=== PATIENT | female | born 1960 | race Caucasian/White ===

== ENCOUNTER 2018-11-10 12:34 | Emergency (ER) | payer BC, SELFPAY ==
[2018-11-10 12:25] VITALS: BP 123/53; PULSE 59; RESP 18; TEMP 37.1; O2SAT 98
--- NOTE | 2018-11-10 12:41 | DI.RAD.S_ITS ---
PROCEDURE: XR CHEST 1V INDICATIONS: syncopal episodes TECHNIQUE: One view of the chest was acquired. COMPARISON: [facility], , CHEST 2 VIEW, 10/14/2011, 9:21. FINDINGS: Surgical changes and devices: None. Lungs and pleura: Lungs are clear. No pleural effusions or pneumothorax. Mediastinum: Mediastinal contours appear normal. Heart size is normal. Bones and chest wall: No suspicious bony lesions. Overlying soft tissues appear unremarkable. IMPRESSION: No evidence acute pulmonary process. Dictated by: Gen Rao M.D. on 11/10/2018 at 13:27 Approved by: Gen Rao M.D. on 11/10/2018 at 13:27
--- NOTE | 2018-11-10 12:45 | ED.HA ---
HPI - Headache <MALDONADO Kim - Last Filed: 11/11/18 02:13> General Chief Complaint: Syncope Stated Complaint: Fall 8 days ago Source: patient and other (AA sponsor) Mode of arrival: EMS Limitations: no limitations History of Present Illness HPI Narrative: This is a 58-year-old female, nonsmoker, who had syncopal episode 8 days ago when she walking to the kitchen to drink above water since she fell mildly dehydrated. She says she was not feeling well and had dizziness and felt dehydrated at this time but denies chest pain, breathing difficulty. She also had a couple of vomitings which has resolved at this time. She was unsure how long she was on the floor after the syncopal episode. Then again she had two more episodes of syncopes over the last couple of days. She complains of headache, neck pain, feeling fatigued. She was abstinent from alcohol last 2 years but had relapsed 2 days ago and has been drinking a bottle of wine each day. She reports has increased stress at this time. She denies taking other drugs or substances with alcohol and is not suicidal. She reports left arm and leg numbness. She denies weakness to her extremities, difficulty speech, difficulty swallowing. She reports mild photosensitivity with her headache. She reports is known to have bradycardia in 60s. She currently lives with a roommate and works with her AA sponsor for her alcohol addiction. According to the medics, her blood pressure was in 90s at one point en route. Related Data Home Medications Medication Instructions Recorded Confirmed CHOLECALCIFEROL (VITAMIN D3) 2,000 iu PO Q DAY #0 10/02/11 (Vitamin D) Fish Oil (#FISH OIL) 1 iu PO Q DAY #0 10/02/11 GINKGO BILOBA (GINKO BILOBA) 60 mg PO Q DAY #0 10/02/11 MULTIVITAMIN (#ATOXIMETIN-B) 1 cap PO Q DAY #0 10/02/11 VITAMIN B COMPLEX (Vitamin B 1 tab PO Q DAY #0 10/02/11 Complex) divalproex [Depakote] 1,500 mg PO BID #0 10/02/11 duloxetine [Cymbalta] 60 mg PO Q DAY #0 10/02/11 bupropion HCl 150 mg PO BID 11/10/18 11/10/18 levothyroxine 200 mcg PO DAILY 11/10/18 11/10/18 Allergies Allergy/AdvReac Type Severity Reaction Status Date / Time No Known Drug Allergies Allergy Verified 11/10/18 12:36 Review of Systems <MALDONADO Kim - Last Filed: 11/11/18 02:13> Review of Systems General: See HPI HEENT: Reports headache and mild light sensitivity. Denies sinus pain, ear pain, sore throat, difficulty swallowing, dizziness. Respiratory: Denies dyspnea, cough, wheezing, hemoptysis, sputum. Cardiovascular: Denies chest pain, palpitations, orthopnea, edema. Gastrointestinal: Resolved vomiting x2 8 days ago. Denies nausea, abdominal pain, diarrhea, constipation, melena. : Denies dysuria, frequency, incontinence, hematuria, urinary retention. Musculoskeletal: Denies weakness, joint pain or bony pain. Skin: Denies rash, skin lesions. Reports bruises. Neurologic: Denies weakness, change in speech, confusion, seizures, incoordination. Psychiatric: Reports being under significant stressed and relapsed drinking alcohol 2 days ago after 2 years absenteesim. Denies suicidal ideation, homicidal ideation. Reports support from a sponsor and lives with a roommate and a landlord. 12-point review of systems is negative except for those stated above. PFSH <MALDONADO Kim - Last Filed: 11/11/18 02:13> Medical History Alcohol abuse (Acute) Depression (Acute) Cerebral hemorrhage following injury (Chronic) Surgical History (Updated 11/11/18 @ 02:09 by MALDONADO Kim) History of gastric bypass (Chronic) Social History Smoking Status: Never smoker Social History Smoking Status: Never smoker Exam <MALDONADO Kim - Last Filed: 11/11/18 02:13> Narrative Exam Narrative: GEN: Alert, oriented x 3, well appearing and nourished, and in no acute distress. Head: Normal cephalic, atraumatic. No scalp or temporal tenderness, palpable mass or rash. EYES: Pupils are equal, round, and reactive to light and accommodation. Extraocular muscles are intact bilaterally. There is no subconjunctival hemorrhage, exudate and sclera non-icteric. ENT: Bilateral auditory canals and tympanic membranes. Hearing grossly intact. Nose without bleeding, purulent discharge, septal hematoma or deviation. Turbinate without erythema or swelling. Facial sinuses nontender to palpate. Mucous membrane moist, no mucosal lesion. Throat without erythema, tonsillar hypertrophy or exudate. Uvula in midline, airway patent. Neck: Trachea in midline. No JVD, non-tender without lymphadenopathy. No masses or thyroid megaly. Supple, non-tender and meningeal signs. CARDIAC: Normal regular rate and rhythm without murmurs, gallops, or rubs. No chest wall tenderness. No peripheral edema, cyanosis or pallor. Capillary refill is less than 2 seconds. RESPIRATORY: Lungs are cleat to auscultate bilaterally. No cough, wheezes, rales, or rhonchi. No stridor, respiratory distress, increase work of breathing, or accessary muscle used. ABD: Abdomen soft, nontender and non-distended. No guarding or rebound tenderness to palpate. Bowel sounds are normal in all 4 quadrants. There is no palpable masses or organomegaly. EXT: Full painless ROM of all extremities with no loss of sensation, strength, effusion or edema. SKIN: Superficial abrasion to left shoulder, ecchymosis to right knee. Warm, dry, normal color for patient. No erythema, lesions or rash on other areas. BACK: Nontender without deformity or crepitance. No flank tenderness. NEUROLOGICAL: Alert and oriented to place, time and person. No facial droops, dysphasia. CN II-XII intact. Strength and sensation symmetric and intact throughout. Cerebellar testing normal. PSYCHIATRIC: Good judgement and reason, without hallucinations, no abnormal affect or abnormal behaviors during the examination. Patient is not suicidal. Initial Vital Signs Initial Vital Signs: Vital Signs Temperature 98.7 F 11/10/18 12:25 Pulse Rate 59 L 11/10/18 12:25 Respiratory Rate 18 11/10/18 12:25 Blood Pressure 123/53 L 11/10/18 12:25 Pulse Oximetry 98 11/10/18 12:25 <Chapo Jaramillo, DO - Last Filed: 11/12/18 06:33> Initial Vital Signs Initial Vital Signs: Vital Signs Temperature 98.7 F 11/10/18 12:25 Pulse Rate 59 L 11/10/18 12:25 Respiratory Rate 18 11/10/18 12:25 Blood Pressure 123/53 L 11/10/18 12:25 Pulse Oximetry 98 11/10/18 12:25 Course <MALDONADO Kim - Last Filed: 11/11/18 02:13> Orders Ordered: Discontinued Medications Sodium Chloride (Normal Saline 0.9%) 1,000 mls @ 1,000 mls/hr IV BOLUS ONE Stop: 11/10/18 13:39 Last Infusion: 11/10/18 14:56 Dose: 0 mls/hr Admin: 11/10/18 13:27 Dose: 1,000 mls/hr Ketorolac Tromethamine (Toradol) 30 mg IV NOW ONE Stop: 11/10/18 14:29 Last Admin: 11/10/18 14:53 Dose: 30 mg Vital Signs - 8 hr 11/10/18 12:25 11/10/18 13:00 Temperature 98.7 F Pulse Rate 59 L 62 Respiratory Rate 18 17 Blood Pressure 123/53 L Blood Pressure [Left Arm] 116/57 L Pulse Oximetry 98 96 <DO Vero Galdamez Last Filed: 11/12/18 06:33> Orders Ordered: Discontinued Medications Sodium Chloride (Normal Saline 0.9%) 1,000 mls @ 1,000 mls/hr IV BOLUS ONE Stop: 11/10/18 13:39 Last Infusion: 11/10/18 14:56 Dose: 0 mls/hr Admin: 11/10/18 13:27 Dose: 1,000 mls/hr Ketorolac Tromethamine (Toradol) 30 mg IV NOW ONE Stop: 11/10/18 14:29 Last Admin: 11/10/18 14:53 Dose: 30 mg Vital Signs - 8 hr 11/10/18 12:25 11/10/18 13:00 Temperature 98.7 F Pulse Rate 59 L 62 Respiratory Rate 18 17 Blood Pressure 123/53 L Blood Pressure [Left Arm] 116/57 L Pulse Oximetry 98 96 MDM - Headache <MALDONADO Kim - Last Filed: 11/11/18 02:13> Differential Diagnosis Differential diagnosis: Likely subarachnoid hemorrhage, headache, postconcussion syndrome and other (arrthymia, fall, dehydration, alcohol intoxication, c spine fracture) Medical Records Attestation: I reviewed the patient's medical records. Lab Data Attestation: I reviewed the patient's lab results. Result diagrams: 11/10/18 12:45 11/10/18 12:45 Lab Results 11/10/18 11/10/18 11/10/18 Range/Units 12:45 12:45 12:45 WBC 7.1 (4.5-11.0) X10^3/uL RBC 4.59 (4.0-5.2) X10^6/uL Hgb 14.0 (12.0-16.0) g/dL Hct 41.0 (36-46) % MCV 89.2 (80-100) fL MCH 30.5 (26-34) PG MCHC 34.2 (30-36) % RDW 14.2 (11.6-14.8) % Plt Count 242 (150-400) X10^3/uL Neut % (Auto) 55.0 (50-75) % Lymph % (Auto) 35.3 (25-40) % Branch % (Auto) 7.4 (3-14) % Eos % (Auto) 1.4 L (2-4) % Baso % (Auto) 0.9 (0-2) % Neut # (Auto) 3900 (6418-7183) /uL Lymph # (Auto) 2500 (3868-4000) /uL Branch # (Auto) 500 (0-900) /uL Eos # (Auto) 100 (0-450) /uL Baso # (Auto) 100 (0-100) /uL PT 11.3 (10.1-12.7) SECONDS INR 1.0 (0.9-1.3) Sodium 146 H (137-145) mmol/L Potassium 4.6 (3.4-5.1) mmol/L Chloride 108 H (98-107) mmol/L Carbon Dioxide 25 (22-32) mmol/L BUN 7 (7-17) mg/dL Creatinine 0.50 L (0.52-1.04) mg/dL Estimated GFR > 60.0 (>60) mL/min BUN/Creatinine Ratio 14.0 (6-22) Glucose 86 (80-110) mg/dL Calcium 9.5 (8.4-10.2) mg/dL Total Bilirubin 0.5 (0.2-1.3) mg/dL AST 40 H (14-36) IU/L ALT 27 (9-52) IU/L Alkaline Phosphatase 58 (38-126) U/L Total Creatine Kinase 38 (30-135) U/L CK-MB (CK-2) TNP CK-MB (CK-2) Rel Index TNP Troponin I 0.013 (0.01-0.034) ng/mL Total Protein 7.7 (6.3-8.2) g/dL Albumin 4.6 (3.5-5.0) g/dL Globulin 3.1 (1.7-4.1) g/dL Albumin/Globulin Ratio 1.5 (1.0-2.8) Urine RBC (0-5/HPF) Urine WBC (0-5/HPF) Ur Squamous Epith Cells (0-5/HPF) Urine Bacteria (None) Ur Culture Indicated? Micro UA Comment Urine Opiates Screen (Negative) Ur Oxycodone Screen (Negative) Urine Methadone Screen (Negative) Ur Barbiturates Screen (Negative) U Tricyclic Antidepress (Negative) Ur Phencyclidine Scrn (Negative) Ur Amphetamines Screen (Negative) U Methamphetamines Scrn (Negative) Ur MDMA Scrn (Ecstasy) (Negative) U Benzodiazepines Scrn (Negative) Urine Cocaine Screen (Negative) U Marijuana (THC) Screen (Negative) Ethyl Alcohol mg/dL 11/10/18 11/10/18 11/10/18 Range/Units 12:45 15:56 16:25 WBC (4.5-11.0) X10^3/uL RBC (4.0-5.2) X10^6/uL Hgb (12.0-16.0) g/dL Hct (36-46) % MCV (80-100) fL MCH (26-34) PG MCHC (30-36) % RDW (11.6-14.8) % Plt Count (150-400) X10^3/uL Neut % (Auto) (50-75) % Lymph % (Auto) (25-40) % Branch % (Auto) (3-14) % Eos % (Auto) (2-4) % Baso % (Auto) (0-2) % Neut # (Auto) (9533-6136) /uL Lymph # (Auto) (0204-5426) /uL Branch # (Auto) (0-900) /uL Eos # (Auto) (0-450) /uL Baso # (Auto) (0-100) /uL PT (10.1-12.7) SECONDS INR (0.9-1.3) Sodium (137-145) mmol/L Potassium (3.4-5.1) mmol/L Chloride (98-107) mmol/L Carbon Dioxide (22-32) mmol/L BUN (7-17) mg/dL Creatinine (0.52-1.04) mg/dL Estimated GFR (>60) mL/min BUN/Creatinine Ratio (6-22) Glucose (80-110) mg/dL Calcium (8.4-10.2) mg/dL Total Bilirubin (0.2-1.3) mg/dL AST (14-36) IU/L ALT (9-52) IU/L Alkaline Phosphatase (38-126) U/L Total Creatine Kinase (30-135) U/L CK-MB (CK-2) CK-MB (CK-2) Rel Index Troponin I (0.01-0.034) ng/mL Total Protein (6.3-8.2) g/dL Albumin (3.5-5.0) g/dL Globulin (1.7-4.1) g/dL Albumin/Globulin Ratio (1.0-2.8) Urine RBC None seen (0-5/HPF) Urine WBC None seen (0-5/HPF) Ur Squamous Epith Cells 0-1 /hpf (0-5/HPF) Urine Bacteria Few (2-10) H (None) Ur Culture Indicated? Cult not indicated Micro UA Comment Urine Opiates Screen Negative (Negative) Ur Oxycodone Screen Negative (Negative) Urine Methadone Screen Negative (Negative) Ur Barbiturates Screen Negative (Negative) U Tricyclic Antidepress Negative (Negative) Ur Phencyclidine Scrn Negative (Negative) Ur Amphetamines Screen Negative (Negative) U Methamphetamines Scrn Negative (Negative) Ur MDMA Scrn (Ecstasy) Negative (Negative) U Benzodiazepines Scrn Negative (Negative) Urine Cocaine Screen Negative (Negative) U Marijuana (THC) Screen Negative (Negative) Ethyl Alcohol 208 mg/dL Urine Dip Bedside Urine Glucose Negative Bedside Urine Bilirubin - Negative Bedside Urine Ketone - Negative Urine Specific [place] 1.025 Bedside Urine Occult Blood ++ Bedside Urine pH 5 Bedside Urine Protein + 30 Bedside Urine Urobilinogen - Negative Bedside Urine Nitrite - Negative Bedside Urine Leukocytes - Negative Esterase Imaging Data CT-Head: Radiologist's impression: [address] [address] [address] Scan Report Signed Patient: Ash Glass LMR#: [id number] : 9Acct:[id number] Age/Sex: 58 / FDate of Service: 11/10/18 Loc: ED Accession Number: [id number] Procedure: CT cervical spine wo con Ordering Provider: Chava Jacob PROCEDURE: CT HEAD/BRAIN WO CON INDICATIONS: syncopal episodes x3 and c/o HERNÁNDEZ TECHNIQUE: Noncontrast 4.5 mm thick angled axial sections acquired from the foramen magnum to the vertex, with coronal and sagittal reformats. For radiation dose reduction, the following was used: automated exposure control, adjustment of mA and/or kV according to patient size. COMPARISON: [facility], CT, HEAD WITHOUT CONTRAST, 10/05/2007, 12:29. FINDINGS: Image quality: Excellent. CSF spaces: Basal cisterns are patent. No extra-axial fluid collections. The ventricles are symmetric in size and shape. Brain: No intracranial bleeds or masses. There is cerebral volume loss for age, with resultant ventricular and sulcal prominence. There are periventricular and deep white matter chronic small vessel ischemic changes. There is intracranial internal carotid artery atherosclerosis. Skull and face: Calvarium and visualized facial bones appear intact, without suspicious lesions. Sinuses: Visualized sinuses and mastoids are clear. IMPRESSION: No CT evidence of acute intracranial pathology. Dictated by: Anup Farmer M.D. on 11/10/2018 at 12:43 Approved by: Anup Farmer M.D. on 11/10/2018 at 12:44 CT- C spine: Radiologist's impression: CiroprinceAsh Desai 58 F [address] [address] [address] Scan Report Signed Patient: Ash Glass LMR#: [id number] : 9Acct:[id number] Age/Sex: 58 / FDate of Service: 11/10/18 Loc: ED Accession Number: [id number] Procedure: CT head/brain wo con Ordering Provider: Chava Jacob PROCEDURE: CT CERVICAL SPINE WO CON INDICATIONS: syncopal episodes TECHNIQUE: Noncontrast 3 mm thick sections acquired from the skull base to the T4 level. Sagittal and coronal reformats were then constructed. For radiation dose reduction, the following was used: automated exposure control, adjustment of mA and/or kV according to patient size. COMPARISON: [facility], CR, CERVICAL SPINE 2 OR 3 VIEWS, 05/31/2011, 16:50. [facility], CT, CT HEAD/BRAIN WO CON, 11/10/2018, 13:01. FINDINGS: Image quality: This examination is somewhat limited by quantum mottle artifact. Bones: No fractures or dislocations. Visualized superior ribs are intact. Degenerative changes are seen throughout. On the left at the L3-L4 level, there is focal degenerative change of the facet joints. Milder degenerative changes of the facet joints can be seen elsewhere. The there is mild to moderate disc space narrowing seen at C5-C6 and C6-C7. Soft tissues: Prevertebral soft tissues are normal in thickness. No paravertebral hematomas. No apical pneumothoraces. IMPRESSION: No fractures are seen. Degenerative changes are seen. Dictated by: Charly Choudhary M.D. on 11/10/2018 at 12:38 Approved by: Charly Choudhary M.D. on 11/10/2018 at 12:40 Chest x-ray: Radiologist's impression: Ash Glass 58 F [address] [address] XRay Report Signed Patient: Ash Glass LMR#: [id number] : 9Acct:[id number] Age/Sex: 58 / FDate of Service: 11/10/18 Loc: ED Accession Number: [id number] Procedure: XR chest 1V Ordering Provider: Chava Jacob PROCEDURE: XR CHEST 1V INDICATIONS: syncopal episodes TECHNIQUE: One view of the chest was acquired. COMPARISON: [facility], , CHEST 2 VIEW, 10/14/2011, 9:21. FINDINGS: Surgical changes and devices: None. Lungs and pleura: Lungs are clear. No pleural effusions or pneumothorax. Mediastinum: Mediastinal contours appear normal. Heart size is normal. Bones and chest wall: No suspicious bony lesions. Overlying soft tissues appear unremarkable. IMPRESSION: No evidence acute pulmonary process. Dictated by: Gen Rao M.D. on 11/10/2018 at 13:27 Approved by: Gen Rao M.D. on 11/10/2018 at 13:27 ECG Data Attestation: I personally reviewed and interpreted this ECG as follows: Prior ECG tracings: available for review Interpretation: Sinus bradycardia rate at 55, normal [place], without ST elevation or depression. No change from previous EKG in 2011. MDM Narrative Medical decision making narrative: This is 58-year-old female who was brought in by [place] from her home with status post syncopal episode x3 over last 8 days, alcohol intoxication, headache. Initial syncopal episode was 8 days ago and she states had drank 4 cups of coffee but had not drink or ate much on the day while she was on packing boxes at her new place. This was an unwitnessed syncopal episode and she thinks she landed on her back but does not know how long she was on the floor. She had additional 2 more syncopal episodes during last couple of days and she also started drinking alcohol again. She has a history of alcohol abuse and has been attending AA meetings. She just recently celebrated 2 year of sobriety. She reports had drank a bottle of wine last 2 days. She was alert and oriented x3, Her neuro exam for CN 2-12 was intact and LAMS score was 0. The CT scan for head was negative for acute intracranial bleeding or masses. The CT scan for neck was negative for fractures, however he showed mild to moderate disc space narrowing in C5 through C7. The chest x-ray shows no evidence of acute pulmonary process. Her EKG was normal sinus Dino rated [address] elevation or depression. She had similar EKG in 2013. Her CBC and coagulation tests were unremarkable. Her sodium level was 146, chloride was 108, creatinine was 0.5 (0.52-1.04) and BUN of 7. Her AST was 40 (14-36), her troponin was negative. Negative for urine nitrite and urine leukocytes esterase. UDS tests were negative. Her blood ETOH level was 208. The patient was hydrated with 1 L of normal saline. She had dry oral mucous membrane per exam and reports has not been hydrating herself well at home. She was treated with Ketoral 30 mg IV for the headache. I discussed with the patient considering admitting to the hospital for further workup. The patient declines and expressed that she will be leaving the emergency room against medical advice. She believes her initial syncopal was due to dehydration and her 2nd and 3rd syncopal episode was due to alcohol intoxication. I discussed with patient the risk of leaving against medical advice including another syncopal episode, injury, even . She reports she understands the risks and consequences. Her GCS was 15, alert and oriented x3, she was conversing clearly without slurring, she was able to ambulate to the bathroom in stable gait. She has capacity to make sound judgment at this time and signed Against Medical Advice form and witnessed by katherine and Heather with her sponsor at bedside. Patient was instructed to follow up with her primary care physician this coming week for re-evaluation and return to ED at any time with returning precautions such as another syncopal episode chest pain, breathing, dizziness, any acute concerns to refrain from drinking alcohol. <Chapo Jaramillo, DO - Last Filed: 11/12/18 06:33> Lab Data Lab Results 11/10/18 11/10/18 11/10/18 Range/Units 12:45 12:45 12:45 WBC 7.1 (4.5-11.0) X10^3/uL RBC 4.59 (4.0-5.2) X10^6/uL Hgb 14.0 (12.0-16.0) g/dL Hct 41.0 (36-46) % MCV 89.2 (80-100) fL MCH 30.5 (26-34) PG MCHC 34.2 (30-36) % RDW 14.2 (11.6-14.8) % Plt Count 242 (150-400) X10^3/uL Neut % (Auto) 55.0 (50-75) % Lymph % (Auto) 35.3 (25-40) % Branch % (Auto) 7.4 (3-14) % Eos % (Auto) 1.4 L (2-4) % Baso % (Auto) 0.9 (0-2) % Neut # (Auto) 3900 (7113-1357) /uL Lymph # (Auto) 2500 (0644-7495) /uL Branch # (Auto) 500 (0-900) /uL Eos # (Auto) 100 (0-450) /uL Baso # (Auto) 100 (0-100) /uL PT 11.3 (10.1-12.7) SECONDS INR 1.0 (0.9-1.3) Sodium 146 H (137-145) mmol/L Potassium 4.6 (3.4-5.1) mmol/L Chloride 108 H (98-107) mmol/L Carbon Dioxide 25 (22-32) mmol/L BUN 7 (7-17) mg/dL Creatinine 0.50 L (0.52-1.04) mg/dL Estimated GFR > 60.0 (>60) mL/min BUN/Creatinine Ratio 14.0 (6-22) Glucose 86 (80-110) mg/dL Calcium 9.5 (8.4-10.2) mg/dL Total Bilirubin 0.5 (0.2-1.3) mg/dL AST 40 H (14-36) IU/L ALT 27 (9-52) IU/L Alkaline Phosphatase 58 (38-126) U/L Total Creatine Kinase 38 (30-135) U/L CK-MB (CK-2) TNP CK-MB (CK-2) Rel Index TNP Troponin I 0.013 (0.01-0.034) ng/mL Total Protein 7.7 (6.3-8.2) g/dL Albumin 4.6 (3.5-5.0) g/dL Globulin 3.1 (1.7-4.1) g/dL Albumin/Globulin Ratio 1.5 (1.0-2.8) Urine RBC (0-5/HPF) Urine WBC (0-5/HPF) Ur Squamous Epith Cells (0-5/HPF) Urine Bacteria (None) Ur Culture Indicated? Micro UA Comment Urine Opiates Screen (Negative) Ur Oxycodone Screen (Negative) Urine Methadone Screen (Negative) Ur Barbiturates Screen (Negative) U Tricyclic Antidepress (Negative) Ur Phencyclidine Scrn (Negative) Ur Amphetamines Screen (Negative) U Methamphetamines Scrn (Negative) Ur MDMA Scrn (Ecstasy) (Negative) U Benzodiazepines Scrn (Negative) Urine Cocaine Screen (Negative) U Marijuana (THC) Screen (Negative) Ethyl Alcohol mg/dL 11/10/18 11/10/18 11/10/18 Range/Units 12:45 15:56 16:25 WBC (4.5-11.0) X10^3/uL RBC (4.0-5.2) X10^6/uL Hgb (12.0-16.0) g/dL Hct (36-46) % MCV (80-100) fL MCH (26-34) PG MCHC (30-36) % RDW (11.6-14.8) % Plt Count (150-400) X10^3/uL Neut % (Auto) (50-75) % Lymph % (Auto) (25-40) % Branch % (Auto) (3-14) % Eos % (Auto) (2-4) % Baso % (Auto) (0-2) % Neut # (Auto) (7827-6097) /uL Lymph # (Auto) (5462-0933) /uL Branch # (Auto) (0-900) /uL Eos # (Auto) (0-450) /uL Baso # (Auto) (0-100) /uL PT (10.1-12.7) SECONDS INR (0.9-1.3) Sodium (137-145) mmol/L Potassium (3.4-5.1) mmol/L Chloride (98-107) mmol/L Carbon Dioxide (22-32) mmol/L BUN (7-17) mg/dL Creatinine (0.52-1.04) mg/dL Estimated GFR (>60) mL/min BUN/Creatinine Ratio (6-22) Glucose (80-110) mg/dL Calcium (8.4-10.2) mg/dL Total Bilirubin (0.2-1.3) mg/dL AST (14-36) IU/L ALT (9-52) IU/L Alkaline Phosphatase (38-126) U/L Total Creatine Kinase (30-135) U/L CK-MB (CK-2) CK-MB (CK-2) Rel Index Troponin I (0.01-0.034) ng/mL Total Protein (6.3-8.2) g/dL Albumin (3.5-5.0) g/dL Globulin (1.7-4.1) g/dL Albumin/Globulin Ratio (1.0-2.8) Urine RBC None seen (0-5/HPF) Urine WBC None seen (0-5/HPF) Ur Squamous Epith Cells 0-1 /hpf (0-5/HPF) Urine Bacteria Few (2-10) H (None) Ur Culture Indicated? Cult not indicated Micro UA Comment Urine Opiates Screen Negative (Negative) Ur Oxycodone Screen Negative (Negative) Urine Methadone Screen Negative (Negative) Ur Barbiturates Screen Negative (Negative) U Tricyclic Antidepress Negative (Negative) Ur Phencyclidine Scrn Negative (Negative) Ur Amphetamines Screen Negative (Negative) U Methamphetamines Scrn Negative (Negative) Ur MDMA Scrn (Ecstasy) Negative (Negative) U Benzodiazepines Scrn Negative (Negative) Urine Cocaine Screen Negative (Negative) U Marijuana (THC) Screen Negative (Negative) Ethyl Alcohol 208 mg/dL Urine Dip Bedside Urine Glucose Negative Bedside Urine Bilirubin - Negative Bedside Urine Ketone - Negative Urine Specific [place] 1.025 Bedside Urine Occult Blood ++ Bedside Urine pH 5 Bedside Urine Protein + 30 Bedside Urine Urobilinogen - Negative Bedside Urine Nitrite - Negative Bedside Urine Leukocytes - Negative Esterase Discharge Plan Departure Patient Disposition: Left Against Medical Advice Clinical Impression: Dehydration Syncope Qualifiers: Syncope type: unspecified Qualified Code(s): R55 - Syncope and collapse Alcohol intoxication Qualifiers: Complication of substance-induced condition: with unspecified complication Qualified Code(s): F10.929 - Alcohol use, unspecified with intoxication, unspecified Discharge Date/Time: 11/10/18 17:05 Interventions: ED Discharge Assessment Last Done: 11/10/18 17:05 Instructions: DI for Syncope in Adults (Fainting), DI for Dehydration -- Adult, DI for Alcohol Abuse Activity Restrictions/Additional Instructions: You have been diagnosed with [syncope, dehydration, alcohol intoxication. Your CT scan on your head no acute findings, C-spine showed incidental mild to moderate disc space narrowing at C5 through C7, your lab looks unremarkable except mildly elevated sodium and chloride. You were hydrated with a L of normal saline and oral hydration. You're able to ambulate well in ER, and able to tolerate fluids. Her headache had improved with Toradol medication. We discussed about being admitted to the hospital in length but you selected to go home and to f/u with your PCP against the medical advice. Please have someone stay with you. You may need further workup for syncopal episodes.]. What to do: *Take your medications as directed. No new medication to go home with *Follow up with your primary care provider in 2-3 days, call for an appointment. Let them know you were seen in the ED and that we asked you to be seen in follow up. *Return to ED if you have any new, worsening, or concerning symptoms, such as [increasing headache, vision change, weakness to extremities, repeated nausea vomiting, speech difficulty, fainting episodes, chest pain, breathing difficulty, dizziness, any acute concerns. Please refrain from drinking alcohol and continue to attend AA meeting with her sponsor]. Prescriptions: No Action divalproex [Depakote] 500 MG tablet,delayed release (DR/EC) 1,500 mg PO BID Qty: 0 RF: 0 duloxetine [Cymbalta] 60 MG capsule,delayed release(DR/EC) 60 mg PO Q DAY Qty: 0 RF: 0 CHOLECALCIFEROL (VITAMIN D3) (Vitamin D) 2,000 iu PO Q DAY Qty: 0 RF: 0 MULTIVITAMIN (#ATOXIMETIN-B) 1 cap PO Q DAY Qty: 0 RF: 0 VITAMIN B COMPLEX (Vitamin B Complex) 1 tab PO Q DAY Qty: 0 RF: 0 Fish Oil (#FISH OIL) 1 iu PO Q DAY Qty: 0 RF: 0 GINKGO BILOBA (GINKO BILOBA) 60 mg PO Q DAY Qty: 0 RF: 0 bupropion HCl 150 mg tablet sustained-release 12 hr 150 mg PO BID RF: 0 levothyroxine 200 mcg tablet 200 mcg PO DAILY RF: 0 Referrals: Debi Blank ARNP [Non-Staff] - <Chapo Jaramillo DO - Last Filed: 11/12/18 06:33> Cosign ED Attending Sohanature Attestation: I was immediately available in the department for consultation. Documentation has been reviewed. I agree with assessment and plan.
[2018-11-10 12:53] LABS: Add Manual Diff / Slide Review NO; Basophils Absolute Auto 100 /uL (0-100); Basophils Percent Auto 0.9 % (0-2); Eosinophils Absolute Auto 100 /uL (0-450); Eosinophils Percent Auto 1.4 % (2-4); Lymphocytes Absolute Auto 2500 /uL (1100-4500); Lymphocytes Percent Auto 35.3 % (25-40); Mean Corpuscular HGB Conc 34.2 % (30-36); Mean Corpuscular Hemoglobin 30.5 PG (26-34); Mean Corpuscular Volume 89.2 fL (80-100); Monocytes Absolute Auto 500 /uL (0-900); Monocytes Percent Auto 7.4 % (3-14); Neutrophils Absolute Auto 3900 /uL (1500-7000); Platelet Count 242 X10^3/uL (150-400); Red Blood Cell Count 4.59 X10^6/uL (4.0-5.2); Red Cell Distribution Width 14.2 % (11.6-14.8); White Blood Cell Count 7.1 X10^3/uL (4.5-11.0)
[2018-11-10 12:57] LABS: Prothrombin Time 11.3 SECONDS (10.1-12.7)
[2018-11-10 13:00] VITALS: BP 116/57; PULSE 62; RESP 17; O2SAT 96
[2018-11-10 13:02] LABS: Alanine Aminotransferase 27 IU/L (9-52); Albumin 4.6 g/dL (3.5-5.0); Albumin Globulin Ratio 1.5 (1.0-2.8); Alkaline Phosphatase 58 U/L (38-126); Aspartate Aminotransferase 40 IU/L (14-36); Bilirubin Total 0.5 mg/dL (0.2-1.3); Blood Urea Nitrogen 7 mg/dL (7-17); Calcium 9.5 mg/dL (8.4-10.2); Carbon Dioxide 25 mmol/L (22-32); Chloride 108 mmol/L (98-107); Creatine Kinase 38 U/L (30-135); Estimated Glomerular Filt Rate > 60.0 mL/min (>60); Globulin 3.1 g/dL (1.7-4.1); Glucose 86 mg/dL (80-110); Potassium 4.6 mmol/L (3.4-5.1); Sodium 146 mmol/L (137-145); Total Protein 7.7 g/dL (6.3-8.2)
[2018-11-10 13:04] LABS: HEMOLYSIS 56 (0-50)
[2018-11-10 13:13] LABS: Troponin I 0.013 ng/mL (0.01-0.034)
[2018-11-10 13:20] LABS: Ethanol (ETOH) 208 mg/dL
--- NOTE | 2018-11-10 13:20 | DI.CT.S_ITS ---
PROCEDURE: CT CERVICAL SPINE WO CON INDICATIONS: syncopal episodes TECHNIQUE: Noncontrast 3 mm thick sections acquired from the skull base to the T4 level. Sagittal and coronal reformats were then constructed. For radiation dose reduction, the following was used: automated exposure control, adjustment of mA and/or kV according to patient size. COMPARISON: [facility], CR, CERVICAL SPINE 2 OR 3 VIEWS, 05/31/2011, 16:50. [facility], CT, CT HEAD/BRAIN WO CON, 11/10/2018, 13:01. FINDINGS: Image quality: This examination is somewhat limited by quantum mottle artifact. Bones: No fractures or dislocations. Visualized superior ribs are intact. Degenerative changes are seen throughout. On the left at the L3-L4 level, there is focal degenerative change of the facet joints. Milder degenerative changes of the facet joints can be seen elsewhere. The there is mild to moderate disc space narrowing seen at C5-C6 and C6-C7. Soft tissues: Prevertebral soft tissues are normal in thickness. No paravertebral hematomas. No apical pneumothoraces. IMPRESSION: No fractures are seen. Degenerative changes are seen. Dictated by: Charly Choudhary M.D. on 11/10/2018 at 12:38 Approved by: Charly Choudhary M.D. on 11/10/2018 at 12:40
--- NOTE | 2018-11-10 13:21 | DI.CT.S_ITS ---
PROCEDURE: CT HEAD/BRAIN WO CON INDICATIONS: syncopal episodes x3 and c/o HERNÁNDEZ TECHNIQUE: Noncontrast 4.5 mm thick angled axial sections acquired from the foramen magnum to the vertex, with coronal and sagittal reformats. For radiation dose reduction, the following was used: automated exposure control, adjustment of mA and/or kV according to patient size. COMPARISON: [facility], CT, HEAD WITHOUT CONTRAST, 10/05/2007, 12:29. FINDINGS: Image quality: Excellent. CSF spaces: Basal cisterns are patent. No extra-axial fluid collections. The ventricles are symmetric in size and shape. Brain: No intracranial bleeds or masses. There is cerebral volume loss for age, with resultant ventricular and sulcal prominence. There are periventricular and deep white matter chronic small vessel ischemic changes. There is intracranial internal carotid artery atherosclerosis. Skull and face: Calvarium and visualized facial bones appear intact, without suspicious lesions. Sinuses: Visualized sinuses and mastoids are clear. IMPRESSION: No CT evidence of acute intracranial pathology. Dictated by: Anup Farmer M.D. on 11/10/2018 at 12:43 Approved by: Anup Farmer M.D. on 11/10/2018 at 12:44
[2018-11-10] MEDS: SODIUM CHLORIDE 0.9% 1,000 ML 1000 ML IV (13:27)
--- NOTE | 2018-11-10 14:02 | ED_ITS ---
HPI - Headache <MALDONADO Kim - Last Filed: 11/11/18 02:13> General Chief Complaint: Syncope Stated Complaint: Fall 8 days ago Source: patient and other (AA sponsor) Mode of arrival: EMS Limitations: no limitations History of Present Illness HPI Narrative: This is a 58-year-old female, nonsmoker, who had syncopal episode 8 days ago when she walking to the kitchen to drink above water since she fell mildly dehydrated. She says she was not feeling well and had dizziness and felt dehydrated at this time but denies chest pain, breathing difficulty. She also had a couple of vomitings which has resolved at this time. She was unsure how long she was on the floor after the syncopal episode. Then again she had two more episodes of syncopes over the last couple of days. She complains of headache, neck pain, feeling fatigued. She was abstinent from alcohol last 2 years but had relapsed 2 days ago and has been drinking a bottle of wine each day. She reports has increased stress at this time. She denies taking other drugs or substances with alcohol and is not suicidal. She reports left arm and leg numbness. She denies weakness to her extremities, difficulty speech, dif ficulty swallowing. She reports mild photosensitivity with her headache. She reports is known to have bradycardia in 60s. She currently lives with a roommate and works with her AA sponsor for her alcohol addiction. According to the medics, her blood pressure was in 90s at one point en route. Related Data Home Medications Medication Instructions Recorded Confirmed CHOLECALCIFEROL (VITAMIN D3) 2,000 iu PO Q DAY #0 10/02/11 (Vitamin D) Fish Oil (#FISH OIL) 1 iu PO Q DAY #0 10/02/11 GINKGO BILOBA (GINKO BILOBA) 60 mg PO Q DAY #0 10/02/11 MULTIVITAMIN (#ATOXIMETIN-B) 1 cap PO Q DAY #0 10/02/11 VITAMIN B COMPLEX (Vitamin B 1 tab PO Q DAY #0 10/02/11 Complex) divalproex [Depakote] 1,500 mg PO BID #0 10/02/11 duloxetine [Cymbalta] 60 mg PO Q DAY #0 10/02/11 bupropion HCl 150 mg PO BID 11/10/18 11/10/18 levothyroxine 200 mcg PO DAILY 11/10/18 11/10/18 Allergies Allergy/AdvReac Type Severity Reaction Status Date / Time No Known Drug Allergies Allergy Verified 11/10/18 12:36 Review of Systems <MALDONADO Kim - Last Filed: 11/11/18 02:13> Review of Systems General: See HPI HEENT: Reports headache and mild light sensitivity. Denies sinus pain, ear pain, sore throat, difficulty swallowing, dizziness. Respiratory: Denies dyspnea, cough, wheezing, hemoptysis, sputum. Cardiovascular: Denies chest pain, palpitations, orthopnea, edema. Gastrointestinal: Resolved vomiting x2 8 days ago. Denies nausea, abdominal pain, diarrhea, constipation, melena. : Denies dysuria, frequency, incontinence, hematuria, urinary retention. Musculoskeletal: Denies weakness, joint pain or bony pain. Skin: Denies rash, skin lesions. Reports bruises. Neurologic: Denies weakness, change in speech, confusion, seizures, incoordination. Psychiatric: Reports being under significant stressed and relapsed drinking alcohol 2 days ago after 2 years absenteesim. Denies suicidal ideation, homicidal ideation. Reports support from a sponsor and lives with a roommate and a landlord. 12-point review of systems is negative except for those stated above. PFSH <MALDONADO Kim - Last Filed: 11/11/18 02:13> Medical History Alcohol abuse (Acute) Depression (Acute) Cerebral hemorrhage following injury (Chronic) Surgical History (Updated 11/11/18 @ 02:09 by MALDONADO Kim) History of gastric bypass (Chronic) Social History Smoking Status: Never smoker Social History Smoking Status: Never smoker Exam <MALDONADO Kim - Last Filed: 11/11/18 02:13> Narrative Exam Narrative: GEN: Alert, oriented x 3, well appearing and nourished, and in no acute distress. Head: Normal cephalic, atraumatic. No scalp or temporal tenderness, palpable mass or rash. EYES: Pupils are equal, round, and reactive to light and accommodation. Extraocular muscles are intact bilaterally. There is no subconjunctival hemorrhage, exudate and sclera non-icteric. ENT: Bilateral auditory canals and tympanic membranes. Hearing grossly intact. Nose without bleeding, purulent discharge, septal hematoma or deviation. Turbinate without erythema or swelling. Facial sinuses nontender to palpate. Mucous membrane moist, no mucosal lesion. Throat without erythema, tonsillar hypertrophy or exudate. Uvula in midline, airway patent. Neck: Trachea in midline. No JVD, non-tender without lymphadenopathy. No masses or thyroid megaly. Supple, non-tender and meningeal signs. CARDIAC: Normal regular rate and rhythm without murmurs, gallops, or rubs. No chest wall tenderness. No peripheral edema, cyanosis or pallor. Capillary refill is less than 2 seconds. RESPIRATORY: Lungs are cleat to auscultate bilaterally. No cough, wheezes, rales, or rhonchi. No stridor, respiratory distress, increase work of breathing, or accessary muscle used. ABD: Abdomen soft, nontender and non-distended. No guarding or rebound tenderness to palpate. Bowel sounds are normal in all 4 quadrants. There is no palpable masses or organomegaly. EXT: Full painless ROM of all extremities with no loss of sensation, strength, effusion or edema. SKIN: Superficial abrasion to left shoulder, ecchymosis to right knee. Warm, dry, normal color for patient. No erythema, lesions or rash on other areas. BACK: Nontender without deformity or crepitance. No flank tenderness. NEUROLOGICAL: Alert and oriented to place, time and person. No facial droops, dysphasia. CN II-XII intact. Strength and sensation symmetric and intact throughout. Cerebellar testing normal. PSYCHIATRIC: Good judgement and reason, without hallucinations, no abnormal affect or abnormal behaviors during the examination. Patient is not suicidal. Initial Vital Signs Initial Vital Signs: Vital Signs Temperature 98.7 F 11/10/18 12:25 Pulse Rate 59 L 11/10/18 12:25 Respiratory Rate 18 11/10/18 12:25 Blood Pressure 123/53 L 11/10/18 12:25 Pulse Oximetry 98 11/10/18 12:25 <Chapo Jaramillo, DO - Last Filed: 11/12/18 06:33> Initial Vital Signs Initial Vital Signs: Vital Signs Temperature 98.7 F 11/10/18 12:25 Pulse Rate 59 L 11/10/18 12:25 Respiratory Rate 18 11/10/18 12:25 Blood Pressure 123/53 L 11/10/18 12:25 Pulse Oximetry 98 11/10/18 12:25 Course <MALDONADO Kim - Last Filed: 11/11/18 02:13> Orders Ordered: Discontinued Medications Sodium Chloride (Normal Saline 0.9%) 1,000 mls @ 1,000 mls/hr IV BOLUS ONE Stop: 11/10/18 13:39 Last Infusion: 11/10/18 14:56 Dose: 0 mls/hr Admin: 11/10/18 13:27 Dose: 1,000 mls/hr Ketorolac Tromethamine (Toradol) 30 mg IV NOW ONE Stop: 11/10/18 14:29 Last Admin: 11/10/18 14:53 Dose: 30 mg Vital Signs - 8 hr 11/10/18 12:25 11/10/18 13:00 Temperature 98.7 F Pulse Rate 59 L 62 Respiratory Rate 18 17 Blood Pressure 123/53 L Blood Pressure [Left Arm] 116/57 L Pulse Oximetry 98 96 <Chapo Jaramillo DO - Last Filed: 11/12/18 06:33> Orders Ordered: Discontinued Medications Sodium Chloride (Normal Saline 0.9%) 1,000 mls @ 1,000 mls/hr IV BOLUS ONE Stop: 11/10/18 13:39 Last Infusion: 11/10/18 14:56 Dose: 0 mls/hr Admin: 11/10/18 13:27 Dose: 1,000 mls/hr Ketorolac Tromethamine (Toradol) 30 mg IV NOW ONE Stop: 11/10/18 14:29 Last Admin: 11/10/18 14:53 Dose: 30 mg Vital Signs - 8 hr 11/10/18 12:25 11/10/18 13:00 Temperature 98.7 F Pulse Rate 59 L 62 Respiratory Rate 18 17 Blood Pressure 123/53 L Blood Pressure [Left Arm] 116/57 L Pulse Oximetry 98 96 MDM - Headache <MALDONADO Kim - Last Filed: 11/11/18 02:13> Differential Diagnosis Differential diagnosis: Likely subarachnoid hemorrhage, headache, postconcussion syndrome and other (arrthymia, fall, dehydration, alcohol intoxication, c spine fracture) Medical Records Attestation: I reviewed the patient's medical records. Lab Data Attestation: I reviewed the patient's lab results. Result diagrams: 11/10/18 12:45 11/10/18 12:45 Lab Results 11/10/18 11/10/18 11/10/18 Range/Units 12:45 12:45 12:45 WBC 7.1 (4.5-11.0) X10^3/uL RBC 4.59 (4.0-5.2) X10^6/uL Hgb 14.0 (12.0-16.0) g/dL Hct 41.0 (36-46) % MCV 89.2 (80-100) fL MCH 30.5 (26-34) PG MCHC 34.2 (30-36) % RDW 14.2 (11.6-14.8) % Plt Count 242 (150-400) X10^3/uL Neut % (Auto) 55.0 (50-75) % Lymph % (Auto) 35.3 (25-40) % Todd % (Auto) 7.4 (3-14) % Eos % (Auto) 1.4 L (2-4) % Baso % (Auto) 0.9 (0-2) % Neut # (Auto) 3900 (1487-7948) /uL Lymph # (Auto) 2500 (8873-4735) /uL Todd # (Auto) 500 (0-900) /uL Eos # (Auto) 100 (0-450) /uL Baso # (Auto) 100 (0-100) /uL PT 11.3 (10.1-12.7) SECONDS INR 1.0 (0.9-1.3) Sodium 146 H (137-145) mmol/L Potassium 4.6 (3.4-5.1) mmol/L Chloride 108 H (98-107) mmol/L Carbon Dioxide 25 (22-32) mmol/L BUN 7 (7-17) mg/dL Creatinine 0.50 L (0.52-1.04) mg/dL Estimated GFR > 60.0 (>60) mL/min BUN/Creatinine Ratio 14.0 (6-22) Glucose 86 (80-110) mg/dL Calcium 9.5 (8.4-10.2) mg/dL Total Bilirubin 0.5 (0.2-1.3) mg/dL AST 40 H (14-36) IU/L ALT 27 (9-52) IU/L Alkaline Phosphatase 58 (38-126) U/L Total Creatine Kinase 38 (30-135) U/L CK-MB (CK-2) TNP CK-MB (CK-2) Rel Index TNP Troponin I 0.013 (0.01-0.034) ng/mL Total Protein 7.7 (6.3-8.2) g/dL Albumin 4.6 (3.5-5.0) g/dL Globulin 3.1 (1.7-4.1) g/dL Albumin/Globulin Ratio 1.5 (1.0-2.8) Urine RBC (0-5/HPF) Urine WBC (0-5/HPF) Ur Squamous Epith Cells (0-5/HPF) Urine Bacteria (None) Ur Culture Indicated? Micro UA Comment Urine Opiates Screen (Negative) Ur Oxycodone Screen (Negative) Urine Methadone Screen (Negative) Ur Barbiturates Screen (Negative) U Tricyclic Antidepress (Negative) Ur Phencyclidine Scrn (Negative) Ur Amphetamines Screen (Negative) U Methamphetamines Scrn (Negative) Ur MDMA Scrn (Ecstasy) (Negative) U Benzodiazepines Scrn (Negative) Urine Cocaine Screen (Negative) U Marijuana (THC) Screen (Negative) Ethyl Alcohol mg/dL 11/10/18 11/10/18 11/10/18 Range/Units 12:45 15:56 16:25 WBC (4.5-11.0) X10^3/uL RBC (4.0-5.2) X10^6/uL Hgb (12.0-16.0) g/dL Hct (36-46) % MCV (80-100) fL MCH (26-34) PG MCHC (30-36) % RDW (11.6-14.8) % Plt Count (150-400) X10^3/uL Neut % (Auto) (50-75) % Lymph % (Auto) (25-40) % Todd % (Auto) (3-14) % Eos % (Auto) (2-4) % Baso % (Auto) (0-2) % Neut # (Auto) (7182-9356) /uL Lymph # (Auto) (8433-6250) /uL Todd # (Auto) (0-900) /uL Eos # (Auto) (0-450) /uL Baso # (Auto) (0-100) /uL PT (10.1-12.7) SECONDS INR (0.9-1.3) Sodium (137-145) mmol/L Potassium (3.4-5.1) mmol/L Chloride (98-107) mmol/L Carbon Dioxide (22-32) mmol/L BUN (7-17) mg/dL Creatinine (0.52-1.04) mg/dL Estimated GFR (>60) mL/min BUN/Creatinine Ratio (6-22) Glucose (80-110) mg/dL Calcium (8.4-10.2) mg/dL Total Bilirubin (0.2-1.3) mg/dL AST (14-36) IU/L ALT (9-52) IU/L Alkaline Phosphatase (38-126) U/L Total Creatine Kinase (30-135) U/L CK-MB (CK-2) CK-MB (CK-2) Rel Index Troponin I (0.01-0.034) ng/mL Total Protein (6.3-8.2) g/dL Albumin (3.5-5.0) g/dL Globulin (1.7-4.1) g/dL Albumin/Globulin Ratio (1.0-2.8) Urine RBC None seen (0-5/HPF) Urine WBC None seen (0-5/HPF) Ur Squamous Epith Cells 0-1 /hpf (0-5/HPF) Urine Bacteria Few (2-10) H (None) Ur Culture Indicated? Cult not indicated Micro UA Comment Urine Opiates Screen Negative (Negative) Ur Oxycodone Screen Negative (Negative) Urine Methadone Screen Negative (Negative) Ur Barbiturates Screen Negative (Negative) U Tricyclic Antidepress Negative (Negative) Ur Phencyclidine Scrn Negative (Negative) Ur Amphetamines Screen Negative (Negative) U Methamphetamines Scrn Negative (Negative) Ur MDMA Scrn (Ecstasy) Negative (Negative) U Benzodiazepines Scrn Negative (Negative) Urine Cocaine Screen Negative (Negative) U Marijuana (THC) Screen Negative (Negative) Ethyl Alcohol 208 mg/dL Urine Dip Bedside Urine Glucose Negative Bedside Urine Bilirubin - Negative Bedside Urine Ketone - Negative Urine Specific [place] 1.025 Bedside Urine Occult Blood ++ Bedside Urine pH 5 Bedside Urine Protein + 30 Bedside Urine Urobilinogen - Negative Bedside Urine Nitrite - Negative Bedside Urine Leukocytes - Negative Esterase Imaging Data CT-Head: Radiologist's impression: [address] [address] [address] Scan Report Signed Patient: Ash Glass LMR#: [id number] : 9Acct:[id number] Age/Sex: 58 / FDate of Service: 11/10/18 Loc: ED Accession Number: [id number] Procedure: CT cervical spine wo con Ordering Provider: Chava Jacob PROCEDURE: CT HEAD/BRAIN WO CON INDICATIONS: syncopal episodes x3 and c/o HERNÁNDEZ TECHNIQUE: Noncontrast 4.5 mm thick angled axial sections acquired from the foramen magnum to the vertex, with coronal and sagittal reformats. For radiation dose reduction, the following was used: automated exposure control, adjustment of mA and/or kV according to patient size. COMPARISON: [facility], CT, HEAD WITHOUT CONTRAST, 10/05/2007, 12:29. FINDINGS: Image quality: Excellent. CSF spaces: Basal cisterns are patent. No extra-axial fluid collections. The ventricles are symmetric in size and shape. Brain: No intracranial bleeds or masses. There is cerebral volume loss for age, with resultant ventricular and sulcal prominence. There are periventricular and deep white matter chronic small vessel ischemic changes. There is intracranial internal carotid artery atherosclerosis. Skull and face: Calvarium and visualized facial bones appear intact, without suspicious lesions. Sinuses: Visualized sinuses and mastoids are clear. IMPRESSION: No CT evidence of acute intracranial pathology. Dictated by: Anup Farmer M.D. on 11/10/2018 at 12:43 Approved by: Anup Farmer M.D. on 11/10/2018 at 12:44 CT- C spine: Radiologist's impression: Ash Glass 58 F [address] [address] [address] Scan Report Signed Patient: Ash Glass LMR#: [id number] : 9Acct:[id number] Age/Sex: 58 / FDate of Service: 11/10/18 Loc: ED Accession Number: [id number] Procedure: CT head/brain wo con Ordering Provider: Chava Jacob PROCEDURE: CT CERVICAL SPINE WO CON INDICATIONS: syncopal episodes TECHNIQUE: Noncontrast 3 mm thick sections acquired from the skull base to the T4 level. Sagittal and coronal reformats were then constructed. For radiation dose reduction, the following was used: automated exposure control, adjustment of mA and/or kV according to patient size. COMPARISON: [facility], CR, CERVICAL SPINE 2 OR 3 VIEWS, 05/31/2011, 16:50. [facility], CT, CT HEAD/BRAIN WO CON, 11/10/2018, 13:01. FINDINGS: Image quality: This examination is somewhat limited by quantum mottle artifact. Bones: No fractures or dislocations. Visualized superior ribs are intact. Degenerative changes are seen throughout. On the left at the L3-L4 level, there is focal degenerative change of the facet joints. Milder degenerative changes of the facet joints can be seen elsewhere. The there is mild to moderate disc space narrowing seen at C5-C6 and C6-C7. Soft tissues: Prevertebral soft tissues are normal in thickness. No paravert ebral hematomas. No apical pneumothoraces. IMPRESSION: No fractures are seen. Degenerative changes are seen. Dictated by: Charly Choudhary M.D. on 11/10/2018 at 12:38 Approved by: Charly Choudhary M.D. on 11/10/2018 at 12:40 Chest x-ray: Radiologist's impression: Ash Glass L 58 F [address] [address] XRay Report Signed Patient: Ash Glass LMR#: [id number] : 9Acct:[id number] Age/Sex: 58 / FDate of Service: 11/10/18 Loc: ED Accession Number: [id number] Procedure: XR chest 1V Ordering Provider: Chava Jacob PROCEDURE: XR CHEST 1V INDICATIONS: syncopal episodes TECHNIQUE: One view of the chest was acquired. COMPARISON: [facility], , CHEST 2 VIEW, 10/14/2011, 9:21. FINDINGS: Surgical changes and devices: None. Lungs and pleura: Lungs are clear. No pleural effusions or pneumothorax. Mediastinum: Mediastinal contours appear normal. Heart size is normal. Bones and chest wall: No suspicious bony lesions. Overlying soft tissues appear unremarkable. IMPRESSION: No evidence acute pulmonary process. Dictated by: Gen Rao M.D. on 11/10/2018 at 13:27 Approved by: Gen Rao M.D. on 11/10/2018 at 13:27 ECG Data Attestation: I personally reviewed and interpreted this ECG as follows: Prior ECG tracings: available for review Interpretation: Sinus bradycardia rate at 55, normal [place], without ST elevation or depression. No change from previous EKG in 2011. MDM Narrative Medical decision making narrative: This is 58-year-old female who was brought in by [facility] from her home with status post syncopal episode x3 over last 8 days, alcohol intoxication, headache. Initial syncopal episode was 8 days ago and she states had drank 4 cups of coffee but had not drink or ate much on the day while she was on packing boxes at her new place. This was an unwitnessed syncopal episode and she thinks she landed on her back but does not know how long she was on the floor. She had additional 2 more syncopal episodes during last couple of days and she also started drinking alcohol again. She has a history of alcohol abuse and has been attending AA meetings. She just recently celebrated 2 year of sobriety. She reports had drank a bottle of wine last 2 days. She was alert and oriented x3, Her neuro exam for CN 2-12 was intact and LAMS score was 0. The CT scan for head was negative for acute intracranial bleeding or masses. The CT scan for neck was negative for fractures, however he showed mild to moderate disc space narrowing in C5 through C7. The chest x-ray shows no evidence of acute pulmonary process. Her EKG was normal sinus Dino rated [address] elevation or depression. She had similar EKG in 2013. Her CBC and coagulation tests were unremarkable. Her sodium level was 146, chloride was 108, creatinine was 0.5 (0.52-1.04) and BUN of 7. Her AST was 40 (14-36), her troponin was negative. Negative for urine nitrite and urine leukocytes esterase. UDS tests were negative. Her blood ETOH level was 208. The patient was hydrated with 1 L of normal saline. She had dry oral mucous membrane per exam and reports has not been hydrating herself well at home. She was treated with Ketoral 30 mg IV for the headache. I discussed with the patient considering admitting to the hospital for further workup. The patient declines and expressed that she will be leaving the emergency room against medical advice. She believes her initial syncopal was due to dehydration and her 2nd and 3rd syncopal episode was due to alcohol intoxication. I discussed with patient the risk of leaving against medical advice including another syncopal episode, injury, even . She reports she understands the risks and consequences. Her GCS was 15, alert and oriented x3, she was conversing clearly without slurring, she was able to ambulate to the bathroom in stable gait. She has capacity to make sound judgment at this time and signed Against Medical Advice form and witnessed by katherine and Heather with her sponsor at bedside. Patient was instructed to follow up with her primary care physician this coming week for re-evaluation and return to ED at any time with returning precautions such as another syncopal episode chest pain, breathing, dizziness, any acute concerns to refrain from drinking alcohol. <Chapo Jaramillo, DO - Last Filed: 11/12/18 06:33> Lab Data Lab Results 11/10/18 11/10/18 11/10/18 Range/Units 12:45 12:45 12:45 WBC 7.1 (4.5-11.0) X10^3/uL RBC 4.59 (4.0-5.2) X10^6/uL Hgb 14.0 (12.0-16.0) g/dL Hct 41.0 (36-46) % MCV 89.2 (80-100) fL MCH 30.5 (26-34) PG MCHC 34.2 (30-36) % RDW 14.2 (11.6-14.8) % Plt Count 242 (150-400) X10^3/uL Neut % (Auto) 55.0 (50-75) % Lymph % (Auto) 35.3 (25-40) % Todd % (Auto) 7.4 (3-14) % Eos % (Auto) 1.4 L (2-4) % Baso % (Auto) 0.9 (0-2) % Neut # (Auto) 3900 (5623-7041) /uL Lymph # (Auto) 2500 (8296-6387) /uL Todd # (Auto) 500 (0-900) /uL Eos # (Auto) 100 (0-450) /uL Baso # (Auto) 100 (0-100) /uL PT 11.3 (10.1-12.7) SECONDS INR 1.0 (0.9-1.3) Sodium 146 H (137-145) mmol/L Potassium 4.6 (3.4-5.1) mmol/L Chloride 108 H (98-107) mmol/L Carbon Dioxide 25 (22-32) mmol/L BUN 7 (7-17) mg/dL Creatinine 0.50 L (0.52-1.04) mg/dL Estimated GFR > 60.0 (>60) mL/min BUN/Creatinine Ratio 14.0 (6-22) Glucose 86 (80-110) mg/dL Calcium 9.5 (8.4-10.2) mg/dL Total Bilirubin 0.5 (0.2-1.3) mg/dL AST 40 H (14-36) IU/L ALT 27 (9-52) IU/L Alkaline Phosphatase 58 (38-126) U/L Total Creatine Kinase 38 (30-135) U/L CK-MB (CK-2) TNP CK-MB (CK-2) Rel Index TNP Troponin I 0.013 (0.01-0.034) ng/mL Total Protein 7.7 (6.3-8.2) g/dL Albumin 4.6 (3.5-5.0) g/dL Globulin 3.1 (1.7-4.1) g/dL Albumin/Globulin Ratio 1.5 (1.0-2.8) Urine RBC (0-5/HPF) Urine WBC (0-5/HPF) Ur Squamous Epith Cells (0-5/HPF) Urine Bacteria (None) Ur Culture Indicated? Micro UA Comment Urine Opiates Screen (Negative) Ur Oxycodone Screen (Negative) Urine Methadone Screen (Negative) Ur Barbiturates Screen (Negative) U Tricyclic Antidepress (Negative) Ur Phencyclidine Scrn (Negative) Ur Amphetamines Screen (Negative) U Methamphetamines Scrn (Negative) Ur MDMA Scrn (Ecstasy) (Negative) U Benzodiazepines Scrn (Negative) Urine Cocaine Screen (Negative) U Marijuana (THC) Screen (Negative) Ethyl Alcohol mg/dL 11/10/18 11/10/18 11/10/18 Range/Units 12:45 15:56 16:25 WBC (4.5-11.0) X10^3/uL RBC (4.0-5.2) X10^6/uL Hgb (12.0-16.0) g/dL Hct (36-46) % MCV (80-100) fL MCH (26-34) PG MCHC (30-36) % RDW (11.6-14.8) % Plt Count (150-400) X10^3/uL Neut % (Auto) (50-75) % Lymph % (Auto) (25-40) % Todd % (Auto) (3-14) % Eos % (Auto) (2-4) % Baso % (Auto) (0-2) % Neut # (Auto) (6652-8083) /uL Lymph # (Auto) (9005-9817) /uL Todd # (Auto) (0-900) /uL Eos # (Auto) (0-450) /uL Baso # (Auto) (0-100) /uL PT (10.1-12.7) SECONDS INR (0.9-1.3) Sodium (137-145) mmol/L Potassium (3.4-5.1) mmol/L Chloride (98-107) mmol/L Carbon Dioxide (22-32) mmol/L BUN (7-17) mg/dL Creatinine (0.52-1.04) mg/dL Estimated GFR (>60) mL/min BUN/Creatinine Ratio (6-22) Glucose (80-110) mg/dL Calcium (8.4-10.2) mg/dL Total Bilirubin (0.2-1.3) mg/dL AST (14-36) IU/L ALT (9-52) IU/L Alkaline Phosphatase (38-126) U/L Total Creatine Kinase (30-135) U/L CK-MB (CK-2) CK-MB (CK-2) Rel Index Troponin I (0.01-0.034) ng/mL Total Protein (6.3-8.2) g/dL Albumin (3.5-5.0) g/dL Globulin (1.7-4.1) g/dL Albumin/Globulin Ratio (1.0-2.8) Urine RBC None seen (0-5/HPF) Urine WBC None seen (0-5/HPF) Ur Squamous Epith Cells 0-1 /hpf (0-5/HPF) Urine Bacteria Few (2-10) H (None) Ur Culture Indicated? Cult not indicated Micro UA Comment Urine Opiates Screen Negative (Negative) Ur Oxycodone Screen Negative (Negative) Urine Methadone Screen Negative (Negative) Ur Barbiturates Screen Negative (Negative) U Tricyclic Antidepress Negative (Negative) Ur Phencyclidine Scrn Negative (Negative) Ur Amphetamines Screen Negative (Negative) U Methamphetamines Scrn Negative (Negative) Ur MDMA Scrn (Ecstasy) Negative (Negative) U Benzodiazepines Scrn Negative (Negative) Urine Cocaine Screen Negative (Negative) U Marijuana (THC) Screen Negative (Negative) Ethyl Alcohol 208 mg/dL Urine Dip Bedside Urine Glucose Negative Bedside Urine Bilirubin - Negative Bedside Urine Ketone - Negative Urine Specific [place] 1.025 Bedside Urine Occult Blood ++ Bedside Urine pH 5 Bedside Urine Protein + 30 Bedside Urine Urobilinogen - Negative Bedside Urine Nitrite - Negative Bedside Urine Leukocytes - Negative Esterase Discharge Plan Departure Patient Disposition: Left Against Medical Advice Clinical Impression: Dehydration Syncope Qualifiers: Syncope type: unspecified Qualified Code(s): R55 - Syncope and collapse Alcohol intoxication Qualifiers: Complication of substance-induced condition: with unspecified complication Qualified Code(s): F10.929 - Alcohol use, unspecified with intoxication, unspecified Discharge Date/Time: 11/10/18 17:05 Interventions: ED Discharge Assessment Last Done: 11/10/18 17:05 Instructions: DI for Syncope in Adults (Fainting), DI for Dehydration -- Adult, DI for Alcohol Abuse Activity Restrictions/Additional Instructions: You have been diagnosed with [syncope, dehydration, alcohol intoxication. Your CT scan on your head no acute findings, C-spine showed incidental mild to moderate disc space narrowing at C5 through C7, your lab looks unremarkable except mildly elevated sodium and chloride. You were hydrated with a L of normal saline and oral hydration. You're able to ambulate well in ER, and able to tolerate fluids. Her headache had improved with Toradol medication. We discussed about being admitted to the hospital in length but you selected to go home and to f/u with your PCP against the medical advice. Please have someone stay with you. You may need further workup for syncopal episodes.]. What to do: *Take your medications as directed. No new medication to go home with *Follow up with your primary care provider in 2-3 days, call for an appointment. Let them know you were seen in the ED and that we asked you to be seen in follow up. *Return to ED if you have any new, worsening, or concerning symptoms, such as [ increasing headache, vision change, weakness to extremities, repeated nausea vomiting, speech difficulty, fainting episodes, chest pain, breathing difficulty, dizziness, any acute concerns. Please refrain from drinking alcohol and continue to attend AA meeting with her sponsor]. Prescriptions: No Action divalproex [Depakote] 500 MG tablet,delayed release (DR/EC) 1,500 mg PO BID Qty: 0 RF: 0 duloxetine [Cymbalta] 60 MG capsule,delayed release(DR/EC) 60 mg PO Q DAY Qty: 0 RF: 0 CHOLECALCIFEROL (VITAMIN D3) (Vitamin D) 2,000 iu PO Q DAY Qty: 0 RF: 0 MULTIVITAMIN (#ATOXIMETIN-B) 1 cap PO Q DAY Qty: 0 RF: 0 VITAMIN B COMPLEX (Vitamin B Complex) 1 tab PO Q DAY Qty: 0 RF: 0 Fish Oil (#FISH OIL) 1 iu PO Q DAY Qty: 0 RF: 0 GINKGO BILOBA (GINKO BILOBA) 60 mg PO Q DAY Qty: 0 RF: 0 bupropion HCl 150 mg tablet sustained-release 12 hr 150 mg PO BID RF: 0 levothyroxine 200 mcg tablet 200 mcg PO DAILY RF: 0 Referrals: Debi Blank ARNP [Non-Staff] - <Chapo Jaramillo DO - Last Filed: 11/12/18 06:33> Cosign ED Attending Sohanature Attestation: I was immediately available in the department for consultation. Documentation has been reviewed. I agree with assessment and plan.
[2018-11-10 14:30] VITALS: BP 108/62; PULSE 63; RESP 16; O2SAT 97
[2018-11-10] MEDS: KETOROLAC 60 MG/2 ML VIAL 30 MG IV (14:53)
--- NOTE | 2018-11-10 15:30 | PC.NURSE ---
Patient requests to go to the bathroom and then DC. She was walked to the bathroom with her friend, states she feels a little unsteady on her feet. Sways but is safe walking with friend for assist. Friend states she would be going home with the patient. Chava OKEEFE aware.
[2018-11-10 16:00] VITALS: BP 99/66; PULSE 63; RESP 16; O2SAT 100
[2018-11-10 16:17] LABS: RBC Urine None Seen (0-5/HPF); WBC Urine None Seen (0-5/HPF)
[2018-11-10 16:33] LABS: Bacteria Urine Few (2-10); Squamous Epithelial Cell Urine 0-1 /HPF (0-5/HPF)
[2018-11-10 16:34] LABS: Culture Indicated Urine Cult Not Indicated
[2018-11-10 16:36] LABS: Urine Amphetamines Negative (Negative); Urine Barbiturates Negative (Negative); Urine Benzodiazepines Negative (Negative); Urine Cocaine Negative (Negative); Urine MDMA Negative (Negative); Urine Methadone Negative (Negative); Urine Methamphetamines Negative (Negative); Urine Morphine/Opi cutoff 2000 Negative (Negative); Urine Oxycodone Negative (Negative); Urine Phencyclidine Negative (Negative); Urine Tetrahydrocannabinol Negative (Negative); Urine Tricyclic Antidepressant Negative (Negative)
[2018-11-10 17:05] VITALS: BP 121/57; PULSE 64; RESP 16; O2SAT 100
--- NOTE | 2018-11-10 17:16 | PC.NURSE ---
Patient sitting up on edge of bed requesting DC after walking to bathroom independently with steady gait. WEB APPLICATIONS DEVELOPER Chava aware. She states normal BP is 102 systolic, does not feel lightheaded at this time. She has removed her own IV due to desire to leave. I gave her fluids and she drank four cups of water. Urine specimen also obtained at this time.
--- NOTE | 2018-11-10 17:20 | PC.NURSE ---
Sponsor is at bedside and has been throughout hospital stay. MALDOANDO Larsen at bedside discusses possibility of wanting to admit patient. While the last two syncopal episodes were most likely alcohol related, her first syncopal episode was when she was sober 3 days ago. She reports she feels she was dehydrated and moving and under a lot of stress and drinking a ton of coffee, I think I was just dry. She recalls going to the kitchen sink to get water when she passed out. AVIONICS SYSTEMS REPAIRER reports she would like to admit her for observation. patient reports she will sign out AMA. She reports desire to go to AA meeting and will continue to stay hydrated and see her AVIONICS SYSTEMS REPAIRER on Tuesday.
--- NOTE | 2018-11-10 17:23 | PC.NURSE ---
Patient reports she was dehydrated and passed out 3 days ago and hit her head. The last two days she has passed out while drinking twice and now has 2 bumps on either side of her head. All three were unwitnessed.
== END 2018-11-10 17:05 | disposition left against medical advice (07) ==
PROVIDERS: Emergency Provider Nurse Practitioner Family; Family Provider Internal Medicine
DX: E86.0 Dehydration (principal); R55 Syncope and collapse; R51 Headache; F10.929 Alcohol use, unspecified with intoxication, unspecified; R00.1 Bradycardia, unspecified; W19.XXXA Unspecified fall, initial encounter; Z53.20 Procedure and treatment not carried out because of patient's decision for unspecified reasons
CPT/HCPCS: 36591; 70450; 71045; 72125; 80053; 80305; 80320; 81003; 81015; 82550; 84484; 85025; 85610; 93005; 93010; 96361; 96374; 99283; 99285; J1885

== ENCOUNTER 2018-11-12 16:55 | Emergency (ER) | payer BC, SELFPAY ==
[2018-11-12] VITALS (7 sets, daily range): BP systolic 91–114; BP diastolic 55–76; PULSE 68–92; RESP 16–20; TEMP 36.8; O2SAT 92–100
[2018-11-12 17:30] LABS: Bacteria Urine None Seen; Urine Amphetamines Negative (Negative); Urine Barbiturates Negative (Negative); Urine Benzodiazepines Negative (Negative); Urine Cocaine Negative (Negative); Urine MDMA Negative (Negative); Urine Methadone Negative (Negative); Urine Methamphetamines Negative (Negative); Urine Morphine/Opi cutoff 2000 Negative (Negative); Urine Oxycodone Negative (Negative); Urine Phencyclidine Negative (Negative); Urine Tetrahydrocannabinol Negative (Negative); Urine Tricyclic Antidepressant Negative (Negative)
[2018-11-12 17:37] LABS: Add Manual Diff / Slide Review NO; Basophils Absolute Auto 0 /uL (0-100); Basophils Percent Auto 0.5 % (0-2); Eosinophils Absolute Auto 0 /uL (0-450); Eosinophils Percent Auto 0.6 % (2-4); Hematocrit 42.8 % (36-46); Hemoglobin 14.4 g/dL (12.0-16.0); Lymphocytes Absolute Auto 1900 /uL (1100-4500); Lymphocytes Percent Auto 25.7 % (25-40); Mean Corpuscular HGB Conc 33.7 % (30-36); Mean Corpuscular Volume 89.3 fL (80-100); Monocytes Absolute Auto 500 /uL (0-900); Monocytes Percent Auto 6.5 % (3-14); Neutrophils Absolute Auto 4900 /uL (1500-7000); Neutrophils Percent Auto 66.7 % (50-75); Platelet Count 269 X10^3/uL (150-400); Red Blood Cell Count 4.79 X10^6/uL (4.0-5.2); Red Cell Distribution Width 13.9 % (11.6-14.8); White Blood Cell Count 7.3 X10^3/uL (4.5-11.0)
[2018-11-12 17:46] LABS: Culture Indicated Urine Cult Not Indicated; Hyaline Casts Urine 5-10/LPF; RBC Urine 5-10/HPF (0-5/HPF); Squamous Epithelial Cell Urine 1-5 /HPF (0-5/HPF); WBC Urine 0-1/HPF (0-5/HPF)
[2018-11-12 17:47] LABS: Alanine Aminotransferase 38 IU/L (9-52); Albumin 4.5 g/dL (3.5-5.0); Albumin Globulin Ratio 1.5 (1.0-2.8); Alkaline Phosphatase 79 U/L (38-126); Aspartate Aminotransferase 48 IU/L (14-36); Bilirubin Total 0.3 mg/dL (0.2-1.3); Bilirubin Unconjugated 0.1 mg/dL (0.0-1.1); Blood Urea Nitrogen 7 mg/dL (7-17); Calcium 9.4 mg/dL (8.4-10.2); Carbon Dioxide 28 mmol/L (22-32); Chloride 103 mmol/L (98-107); Estimated Glomerular Filt Rate > 60.0 mL/min (>60); Ethanol (ETOH) 285 mg/dL; Glucose 112 mg/dL (80-110); HEMOLYSIS < 15 (0-50); Lipase 160 U/L (23-300); Magnesium 1.9 mg/dL (1.6-2.3); Potassium 4.5 mmol/L (3.4-5.1); Sodium 146 mmol/L (137-145); Total Protein 7.5 g/dL (6.3-8.2)
--- NOTE | 2018-11-12 18:12 | ED_ITS ---
HPI - Alcohol General Chief Complaint: Toxicology Problem Stated Complaint: ETOH Time Seen by Provider: 11/12/18 16:59 Source: patient and EMS Mode of arrival: EMS Limitations: no limitations History of Present Illness HPI narrative: 58F non smoker presents by EMS due to alcohol intoxication and evaluation for the 3rd day in a row, apparently her daughter had arranged for alcohol detox bed to be available in [place]. She's been drinking for the past 3 days. She had been sober for three years. She has had DTs before and even progressed to seizures in the past. She is cooperative Related Data Home Medications Medication Instructions Recorded Confirmed CHOLECALCIFEROL (VITAMIN D3) 2,000 iu PO Q DAY #0 10/02/11 (Vitamin D) Fish Oil (#FISH OIL) 1 iu PO Q DAY #0 10/02/11 GINKGO BILOBA (GINKO BILOBA) 60 mg PO Q DAY #0 10/02/11 MULTIVITAMIN (#ATOXIMETIN-B) 1 cap PO Q DAY #0 10/02/11 VITAMIN B COMPLEX (Vitamin B 1 tab PO Q DAY #0 10/02/11 Complex) divalproex [Depakote] 1,500 mg PO BID #0 10/02/11 duloxetine [Cymbalta] 60 mg PO Q DAY #0 10/02/11 bupropion HCl 150 mg PO BID 11/10/18 11/10/18 levothyroxine 200 mcg PO DAILY 11/10/18 11/10/18 Previous Rx's Medication Instructions Recorded lorazepam [Ativan] See Rx Instructions .ROUTE 11/12/18 .COMPLEX #19 tab Allergies Allergy/AdvReac Type Severity Reaction Status Date / Time No Known Drug Allergies Allergy Verified 11/10/18 12:36 Review of Systems Constitutional Denies chills, Denies fever(s), Denies lethargy and Denies weakness Eyes Denies change in vision, Denies eye discharge, Denies irritation and Denies loss of vision ENT Ears, Nose, Mouth, and Throat: Denies change in voice, Denies neck pain and Denies sore throat Cardiovascular Denies chest pain, Denies irregular heart rhythm, Denies lightheadedness, Denies palpitations, Denies dyspnea, Denies dyspnea on exertion and Denies orthopnea Respiratory Denies cough, Denies dyspnea, Denies dyspnea on exertion and Denies wheezing Gastrointestinal Gastrointestinal: Denies abdominal pain, Denies change in bowel habits, Denies diarrhea, Denies nausea and Denies vomiting Genitourinary Denies hematuria, Denies flank pain, Denies urinary incontinence and Denies urinary urgency Musculoskeletal Denies neck pain Integumentary/Breasts Denies pruritus, Denies erythema, Denies rash and Denies wounds Neurologic Denies confusion, Denies loss of vision and Denies weakness Psychiatric Denies anxiety, Denies confusion, Denies depression, Denies homicidal ideation and Denies suicidal ideation Endocrine Denies palpitations Hematologic/Lymphatic Denies easy bruising Allergic/Immunologic Denies wheezing [facility] Medical History Alcohol abuse (Acute) Depression (Acute) Cerebral hemorrhage following injury (Chronic) Surgical History History of gastric bypass (Chronic) Social History Smoking Status: Never smoker Social History Smoking Status: Never smoker Exam Narrative Exam Narrative: GENERAL: [58] year old patient appears stated age. Well- nourished, well-developed patient, in mild distress. Slurring her words, smells of alcohol HEAD: Atraumatic. Normocephalic. EYES: Pupils equal round and reactive. Extraocular motions intact. No scleral icterus. No injection or drainage. ENT: Nose without bleeding, purulent drainage. Throat without erythema, tonsillar hypertrophy or exudate. Airway patent. NECK: Trachea midline. Non tender CARDIOVASCULAR: Regular rate and rhythm without murmurs, gallops, or rubs. RESPIRATORY: Clear to auscultation. Breath sounds equal bilaterally. No wheezes, rales, or rhonchi. GASTROINTESTINAL: Abdomen soft, non-tender, nondistended. EXTREMITIES: No edema or joint tenderness. BACK: Nontender without deformity or crepitance. No flank tenderness. NEURO: AOx3. SKIN: No rash or erythema of visible areas Initial Vital Signs Initial Vital Signs: Vital Signs Temperature 98.3 F 11/12/18 17:00 Pulse Rate 77 11/12/18 17:00 Respiratory Rate 16 11/12/18 17:00 Blood Pressure 102/55 L 11/12/18 17:00 Pulse Oximetry 98 11/12/18 17:00 Course Orders Ordered: Discontinued Medications Lorazepam (Ativan) 1 mg PO NOW ONE Stop: 11/12/18 20:58 Last Admin: 11/12/18 21:00 Dose: 1 mg Lorazepam (Ativan) 2 mg PO NOW ONE Stop: 11/12/18 22:43 Last Admin: 11/12/18 22:47 Dose: Not Given Vital Signs - 8 hr 11/12/18 17:00 11/12/18 17:05 11/12/18 18:00 Temperature 98.3 F Pulse Rate 77 77 68 Respiratory Rate 16 16 20 Blood Pressure 102/55 L Blood Pressure [Right Arm] 102/55 L 91/76 Pulse Oximetry 98 98 97 MDM - Alcohol Lab Data Result diagrams: 11/12/18 17:20 11/12/18 17:20 Labs: Lab Results 11/12/18 11/12/18 11/12/18 Range/Units 17:20 17:20 17:20 WBC 7.3 (4.5-11.0) X10^3/uL RBC 4.79 (4.0-5.2) X10^6/uL Hgb 14.4 (12.0-16.0) g/dL Hct 42.8 (36-46) % MCV 89.3 (80-100) fL MCH 30.0 (26-34) PG MCHC 33.7 (30-36) % RDW 13.9 (11.6-14.8) % Plt Count 269 (150-400) X10^3/uL Neut % (Auto) 66.7 (50-75) % Lymph % (Auto) 25.7 (25-40) % [place] % (Auto) 6.5 (3-14) % Eos % (Auto) 0.6 L (2-4) % Baso % (Auto) 0.5 (0-2) % Neut # (Auto) 4900 (5723-3354) /uL Lymph # (Auto) 1900 (4087-1096) /uL [place] # (Auto) 500 (0-900) /uL Eos # (Auto) 0 (0-450) /uL Baso # (Auto) 0 (0-100) /uL Sodium 146 H (137-145) mmol/L Potassium 4.5 (3.4-5.1) mmol/L Chloride 103 (98-107) mmol/L Carbon Dioxide 28 (22-32) mmol/L BUN 7 (7-17) mg/dL Creatinine 0.50 L (0.52-1.04) mg/dL Estimated GFR > 60.0 (>60) mL/min BUN/Creatinine Ratio 14.0 (6-22) Glucose 112 H (80-110) mg/dL Calcium 9.4 (8.4-10.2) mg/dL Magnesium 1.9 (1.6-2.3) mg/dL Total Bilirubin 0.3 (0.2-1.3) mg/dL Conjugated Bilirubin 0.0 (0.0-0.3) md/dL Unconjugated Bilirubin 0.1 (0.0-1.1) mg/dL AST 48 H (14-36) IU/L ALT 38 (9-52) IU/L Alkaline Phosphatase 79 (38-126) U/L Total Protein 7.5 (6.3-8.2) g/dL Albumin 4.5 (3.5-5.0) g/dL Globulin 3.0 (1.7-4.1) g/dL Albumin/Globulin Ratio 1.5 (1.0-2.8) Lipase 160 (23-300) U/L Urine RBC (0-5/HPF) Urine WBC (0-5/HPF) Ur Squamous Epith Cells (0-5/HPF) Urine Bacteria (None) Hyaline Casts (None) Ur Culture Indicated? Urine Opiates Screen Negative (Negative) Ur Oxycodone Screen Negative (Negative) Urine Methadone Screen Negative (Negative) Ur Barbiturates Screen Negative (Negative) U Tricyclic Antidepress Negative (Negative) Ur Phencyclidine Scrn Negative (Negative) Ur Amphetamines Screen Negative (Negative) U Methamphetamines Scrn Negative (Negative) Ur MDMA Scrn (Ecstasy) Negative (Negative) U Benzodiazepines Scrn Negative (Negative) Urine Cocaine Screen Negative (Negative) U Marijuana (THC) Screen Negative (Negative) Ethyl Alcohol 285 mg/dL 11/12/18 11/12/18 11/12/18 Range/Units 17:20 19:10 22:07 WBC (4.5-11.0) X10^3/uL RBC (4.0-5.2) X10^6/uL Hgb (12.0-16.0) g/dL Hct (36-46) % MCV (80-100) fL MCH (26-34) PG MCHC (30-36) % RDW (11.6-14.8) % Plt Count (150-400) X10^3/uL Neut % (Auto) (50-75) % Lymph % (Auto) (25-40) % [place] % (Auto) (3-14) % Eos % (Auto) (2-4) % Baso % (Auto) (0-2) % Neut # (Auto) (4475-4772) /uL Lymph # (Auto) (4613-3857) /uL [place] # (Auto) (0-900) /uL Eos # (Auto) (0-450) /uL Baso # (Auto) (0-100) /uL Sodium (137-145) mmol/L Potassium (3.4-5.1) mmol/L Chloride (98-107) mmol/L Carbon Dioxide (22-32) mmol/L BUN (7-17) mg/dL Creatinine (0.52-1.04) mg/dL Estimated GFR (>60) mL/min BUN/Creatinine Ratio (6-22) Glucose (80-110) mg/dL Calcium (8.4-10.2) mg/dL Magnesium (1.6-2.3) mg/dL Total Bilirubin (0.2-1.3) mg/dL Conjugated Bilirubin (0.0-0.3) md/dL Unconjugated Bilirubin (0.0-1.1) mg/dL AST (14-36) IU/L ALT (9-52) IU/L Alkaline Phosphatase (38-126) U/L Total Protein (6.3-8.2) g/dL Albumin (3.5-5.0) g/dL Globulin (1.7-4.1) g/dL Albumin/Globulin Ratio (1.0-2.8) Lipase (23-300) U/L Urine RBC 5-10/hpf H (0-5/HPF) Urine WBC 0-1/hpf (0-5/HPF) Ur Squamous Epith Cells 1-5 /hpf (0-5/HPF) Urine Bacteria None seen (None) Hyaline Casts 5-10/lpf (None) Ur Culture Indicated? Cult not indicated Urine Opiates Screen (Negative) Ur Oxycodone Screen (Negative) Urine Methadone Screen (Negative) Ur Barbiturates Screen (Negative) U Tricyclic Antidepress (Negative) Ur Phencyclidine Scrn (Negative) Ur Amphetamines Screen (Negative) U Methamphetamines Scrn (Negative) Ur MDMA Scrn (Ecstasy) (Negative) U Benzodiazepines Scrn (Negative) Urine Cocaine Screen (Negative) U Marijuana (THC) Screen (Negative) Ethyl Alcohol 252 H 163 H mg/dL Urine Dip Bedside Urine Glucose Negative Bedside Urine Bilirubin - Negative Bedside Urine Ketone - Negative Urine Specific [place] 1.015 Bedside Urine Occult Blood + Bedside Urine pH 5.0 Bedside Urine Urobilinogen +/- 1mg Bedside Urine Nitrite - Negative Bedside Urine Leukocytes - Negative Esterase Discharge Plan Departure Patient Disposition: Home Clinical Impression: Alcohol intoxication Qualifiers: Complication of substance-induced condition: uncomplicated Qualified Code(s): F10.920 - Alcohol use, unspecified with intoxication, uncomplicated Discharge Date/Time: 11/12/18 22:57 Interventions: ED Discharge Assessment Last Done: 11/12/18 22:54 Instructions: DI for Alcohol Abuse Activity Restrictions/Additional Instructions: *You have been diagnosed with [alcohol abuse] *What to do: PROCEED DIRECTLY TO [place] [facility] *Take medications as directed *Follow up with your primary care provider in 2-3 days, call for an appointment. Let them know you were seen in the Emergency Department and that we ask that you be seen in follow up *Return to ER if you should have any new, worsening or concerning symptoms Prescriptions: New lorazepam [Ativan] 1 mg tablet See Rx Instructions .ROUTE .COMPLEX Qty: 19 RF: 0 No Action divalproex [Depakote] 500 MG tablet,delayed release (DR/EC) 1,500 mg PO BID Qty: 0 RF: 0 duloxetine [Cymbalta] 60 MG capsule,delayed release(DR/EC) 60 mg PO Q DAY Qty: 0 RF: 0 CHOLECALCIFEROL (VITAMIN D3) (Vitamin D) 2,000 iu PO Q DAY Qty: 0 RF: 0 MULTIVITAMIN (#ATOXIMETIN-B) 1 cap PO Q DAY Qty: 0 RF: 0 VITAMIN B COMPLEX (Vitamin B Complex) 1 tab PO Q DAY Qty: 0 RF: 0 Fish Oil (#FISH OIL) 1 iu PO Q DAY Qty: 0 RF: 0 GINKGO BILOBA (GINKO BILOBA) 60 mg PO Q DAY Qty: 0 RF: 0 bupropion HCl 150 mg tablet sustained-release 12 hr 150 mg PO BID RF: 0 levothyroxine 200 mcg tablet 200 mcg PO DAILY RF: 0
--- NOTE | 2018-11-12 19:12 | PC.NURSE ---
pt restless in bed. Pulled IV almost all the way out. I removed it fully. Tip intact. Pt tolerated well.
[2018-11-12 19:28] LABS: Ethanol (ETOH) 252 mg/dL
--- NOTE | 2018-11-12 20:18 | PC.NURSE ---
All information faxed to [facility]. They ask I call back in 20 min.
--- NOTE | 2018-11-12 20:57 | PC.NURSE ---
Return call to [facility]. They state yes she does have a bed but they need to wait one hour before the nurse is available. they request we call back in one hour. Dr jaimes.
[2018-11-12] MEDS: LORazepam 0.5 MG TABLET 1 MG PO (21:00)
[2018-11-12 22:23] LABS: Ethanol (ETOH) 163 mg/dL
--- NOTE | 2018-11-12 22:31 | PC.NURSE ---
Called [facility]. they accept. tax called.
== END 2018-11-12 22:57 | disposition home or self-care (01) ==
PROVIDERS: Emergency Medicine; Emergency Provider Emergency Medicine
DX: F10.920 Alcohol use, unspecified with intoxication, uncomplicated (principal)
CPT/HCPCS: 36415; 36591; 80053; 80076; 80305; 80320; 81003; 81015; 83690; 83735; 85025; 99283